=== PATIENT | female | born 1965 | race African-American/Black ===

== ENCOUNTER 2016-12-29 16:03 | Emergency (ER) | payer OTHER ==
--- NOTE | 2016-12-29 17:05 | ER Document Report ---
ED General - General Chief Complaint: Headache Stated Complaint: VAGINAL BLEEDING,DIZZY,HEADACHE Time Seen by Provider: 12/29/16 16:50 Mode of Arrival: Ambulatory Information source: Patient Notes: 51-year-old female who has had a history of intermittent rectal bleeding has not had one in the past month who also has a history of iron deficiency but has not been receiving her iron infusions appropriately presents with complaints of lightheadedness dizziness. Patient initially states she does not want transfusion if she needs it but does not give a reason for this Patient completely denies any active bleeding at this time TRAVEL OUTSIDE OF THE [place] IN LAST 30 DAYS: No - HPI Onset: Other Onset/Duration: Intermittent Quality of pain: Other Severity: Mild Associated symptoms: Weakness Exacerbated by: Denies Relieved by: Denies Similar symptoms previously: Yes Recently seen / treated by doctor: Yes - Related Data Allergies/Adverse Reactions: Penicillins Allergy (Verified 12/29/16 16:14) ITCHING, SWELLING iodine [Iodine] Adverse Reaction (Severe, Verified 12/29/16 16:14) rash Past Medical History - Social History Smoking Status: Never Smoker Cigarette use (# per day): No Chew tobacco use (# tins/day): No Smoking Education Provided: No Family History: Hypertension - Past Medical History Cardiac Medical History: Denies: Hx Coronary Artery Disease, Hx Heart Attack, Hx Hypertension Pulmonary Medical History: Denies: Hx Asthma, Hx Bronchitis, Hx COPD, Hx Pneumonia Neurological Medical History: Denies: Hx Cerebrovascular Accident, Hx Seizures Renal/ Medical History: Denies: Hx Peritoneal Dialysis Musculoskeltal Medical History: Denies Hx Arthritis, Reports Hx Musculoskeletal Trauma Skin Medical History: Reports Hx Cellulitis Past Surgical History: Reports: Hx Orthopedic Surgery - left ankle, Hx Tubal Ligation. Denies: Hx Hysterectomy - Immunizations Hx Diphtheria, Pertussis, Tetanus Vaccination: - unsure Review of Systems - Review of Systems Notes: REVIEW OF SYSTEMS: CONSTITUTIONAL : Denies fever, chills, or sweats. Denies recent illness. EENT: Denies eye, ear, throat, or mouth pain or symptoms. Denies nasal or sinus congestion or discharge. Denies throat, tongue, or mouth swelling or difficulty swallowing. CARDIOVASCULAR: Denies chest pain. Denies palpitations or racing or irregular heart beat. Denies ankle edema. RESPIRATORY: Denies cough, cold, or chest congestion. Denies shortness of breath, difficulty breathing, or wheezing. GASTROINTESTINAL: Denies abdominal pain or distention. Denies nausea, vomiting , or diarrhea. Denies blood in vomitus, stools, or per rectum. Denies black, tarry stools. Denies constipation. GENITOURINARY: Denies difficulty urinating, painful urination, burning, frequency, blood in urine, or discharge. FEMALE GENITOURINARY: Denies vaginal bleeding, heavy or abnormal periods, irregular periods. Denies vaginal discharge or odor. MUSCULOSKELETAL: Denies back or neck pain or stiffness. Denies joint pain or swelling. SKIN: Denies rash, lesions or sores. HEMATOLOGIC : Denies easy bruising or bleeding. LYMPHATIC: Denies swollen, enlarged glands. NEUROLOGICAL: Admits to dizziness lightheadedness headache PSYCHIATRIC: Denies anxiety or stress. Denies depression, suicidal ideation, or homicidal ideation. ALL OTHER SYSTEMS REVIEWED AND NEGATIVE. PHYSICAL EXAMINATION: GENERAL: Well-appearing, well-nourished and in no acute distress. HEAD: Atraumatic, normocephalic. EYES: Pupils equal round and reactive to light, extraocular movements intact, conjunctiva are normal. ENT: Nares patent, oropharynx clear without exudates. Moist mucous membranes. Pale lips NECK: Normal range of motion, supple without lymphadenopathy LUNGS: Breath sounds clear to auscultation bilaterally and equal. No wheezes rales or rhonchi. HEART: Regular rate and rhythm without murmurs ABDOMEN: Soft, nontender, nondistended abdomen. No guarding, no rebound. No masses appreciated. Female : deferred Musculoskeletal: Normal range of motion, no pitting or edema. No cyanosis. NEUROLOGICAL: Cranial nerves grossly intact. Normal speech, normal gait. Normal sensory, motor exams PSYCH: Normal mood, normal affect. SKIN: Warm, Dry, normal turgor, no rashes or lesions noted. Dictation was performed using [employer] voice recognition software Physical Exam - Vital signs Vitals: Temp Pulse BP Pulse Ox 98.7 F 103 H 108/64 99 12/29/16 16:12 12/29/16 16:12 12/29/16 16:12 12/29/16 16:12 Course - Re-evaluation Re-evalutation: 12/29/16 18:44 Patient is noted to have a hemoglobin 7.1, she does consent to blood transfusion 12/29/16 22:54 Patient was given Benadryl Compazine notes her headache is completely resolved, with written consent I did transfuse the patient's with multiple family members present. I believe she only needs 1 unit at this time but that she must follow- up with primary care physician regarding her anemia After performing a Medical Screening Examination, I estimate there is LOW risk for ACUTE CORONARY SYNDROME, RESPIRATORY FAILURE, SEPSIS OR MENINGITIS, thus I consider the discharge disposition reasonable. I have reevaluated this patient multiple times and no significant life threatening changes are noted. The patient and I have discussed the diagnosis and risks, and we agree with discharging home with close follow-up. We also discussed returning to the Emergency Department immediately if new or worsening symptoms occur. We have discussed the symptoms which are most concerning (e.g., changing or worsening pain, trouble swallowing or breathing, neck stiffness, fever) that necessitate immediate return. - Vital Signs Vital signs: Temp Pulse Resp BP Pulse Ox 98.7 F 97 18 120/58 L 97 12/29/16 22:11 12/29/16 22:11 12/29/16 22:11 12/29/16 22:11 12/29/16 22:11 - Laboratory Result Diagrams: 12/29/16 18:00 12/29/16 18:00 Laboratory results interpreted by me: 12/29/16 12/29/16 12/29/16 18:00 18:00 18:00 RBC 2.30 L Hgb 7.1 L Hct 20.4 L RDW 15.0 H Est GFR ( Amer) 58 L Est GFR (Non-Af Amer) 48 L Glucose 117 H Crossmatch See Detail Critical Care Note - Critical Care Note Total time excluding time spent on procedures (mins): 34 Comments: 34 minutes of critical care time spent in direct contact evaluating and reevaluating the patient, treating symptoms, reviewing labs and studies and speaking with family and consultants excluding any procedures Discharge - Discharge Clinical Impression: Weakness, Anemia requiring transfusions Condition: Stable Disposition: HOME, SELF-CARE Instructions: Anemia, Iron Deficiency ([facility]) Additional Instructions: Follow up with your physician tomorrow for further care or return to the ED IMMEDIATELY if symptoms worsen or new concerns occur. If you cannot afford to follow up with your primary care physician a list of low cost clinics have been provided at the end of your discharge papers as well. Forms: Return to Work
--- NOTE | 2016-12-29 17:07 | ER Document Report ---
ED Medical Screen (RME) - General Chief Complaint: Headache Stated Complaint: VAGINAL BLEEDING,DIZZY,HEADACHE Time Seen by Provider: 12/29/16 16:50 Notes: Patient is a 51-year-old female who was sent over to the emergency department by her [employer] regarding concerns for GI bleed. Patient states that approximately 2 months ago she underwent banding with Dr. De La Vega for hemorrhoids. She states that they did not work and that intermittently over the past 2 weeks when she strains to have a bowel movement she has lower GI bleeding which resolved after about 15-20 minutes. She states that she has not been bleeding the past 3 days but today she had a terrible headache and felt weak, dizzy and drained. She also states that she was recently diagnosed as a type II diabetic and initiated on a 1300-calorie diet. TRAVEL OUTSIDE OF THE [place] IN LAST 30 DAYS: No - Related Data Allergies/Adverse Reactions: Penicillins Allergy (Verified 12/29/16 16:14) ITCHING, SWELLING iodine [Iodine] Adverse Reaction (Severe, Verified 12/29/16 16:14) rash Past Medical History - Past Medical History Cardiac Medical History: Denies: Hx Coronary Artery Disease, Hx Heart Attack, Hx Hypertension Pulmonary Medical History: Denies: Hx Asthma, Hx Bronchitis, Hx COPD, Hx Pneumonia Neurological Medical History: Denies: Hx Cerebrovascular Accident, Hx Seizures Renal/ Medical History: Denies: Hx Peritoneal Dialysis Musculoskeltal Medical History: Denies Hx Arthritis, Reports Hx Musculoskeletal Trauma Skin Medical History: Reports Hx Cellulitis Past Surgical History: Reports: Hx Orthopedic Surgery - left ankle, Hx Tubal Ligation. Denies: Hx Hysterectomy - Immunizations Hx Diphtheria, Pertussis, Tetanus Vaccination: - unsure Physical Exam - Vital signs Vitals: Temp Pulse BP Pulse Ox 98.7 F 103 H 108/64 99 12/29/16 16:12 12/29/16 16:12 12/29/16 16:12 12/29/16 16:12 - General General appearance: Appears well, Alert In distress: None - Respiratory Respiratory status: No respiratory distress Chest status: Nontender Breath sounds: Normal Chest palpation: Normal - Cardiovascular Rhythm: Regular Heart sounds: Normal auscultation, S1 appreciated, S2 appreciated Pulses: Normal: Radial Course - Vital Signs Vital signs: Temp Pulse Resp BP Pulse Ox 98.7 F 103 H 108/64 99 12/29/16 16:12 12/29/16 16:12 12/29/16 16:12 12/29/16 16:12
[2016-12-29] MEDS ORDERED: DIPHENHYDRAMINE HCL 50 MG/ML VIAL IV ONE (17:23)
[2016-12-29] MEDS ORDERED: PROCHLORPERAZINE EDISYLATE INJ 10 MG/2 ML VIAL IV ONE (17:23)
--- NOTE | 2016-12-29 17:48 | RADIOLOGY REPORT (SQ) ---
EXAM DESCRIPTION: CT HEAD WITHOUT COMPLETED DATE/TIME: 12/29/2016 5:37 pm REASON FOR STUDY: headache COMPARISON: September 2008 TECHNIQUE: Axial images acquired through the brain without intravenous contrast. Images reviewed wi th bone, brain and subdural windows. Images stored on PACS. All CT scanners at this facility use dose modulation, iterative reconstruction, and/or weight based d osing when appropriate to reduce radiation dose to as low as reasonably achievable (ALARA). [facility]: Dose Right [facility]: CareDose [facility]: Dose Right [facility]: Teradose 4D [facility]: [employer] RADIATION DOSE: mGy. LIMITATIONS: None. FINDINGS: VENTRICLES: Normal size and contour. CEREBRUM: No masses. No hemorrhage. No midline shift. No evidence for acute infarction. Normal gra y/white matter differentiation. No areas of low density in the white matter. CEREBELLUM: No masses. No hemorrhage. No alteration of density. No evidence for acute infarction. EXTRAAXIAL SPACES: No fluid collections. No masses. ORBITS AND GLOBE: No intra- or extraconal masses. Normal contour of globe without masses. CALVARIUM: No fracture. PARANASAL SINUSES: No fluid or mucosal thickening. SOFT TISSUES: No mass or hematoma. OTHER: No other significant finding. IMPRESSION: NORMAL BRAIN CT WITHOUT CONTRAST. EVIDENCE OF ACUTE STROKE: NO. COMMENT: Quality ID # 436: Final reports with documentation of one or more dose reduction techniques (e.g., Automated exposure control, adjustment of the mA and/or kV according to patient size, use of iterative reconstruction technique) TECHNICAL DOCUMENTATION: JOB ID: [id number] [employer]- All Rights Reserved
[2016-12-29 18:27] LABS: ABSOLUTE LYMPHOCYTES (AUTO) 2.1 10^3/uL (0.5-4.7); ABSOLUTE MONOCYTES (AUTO) 0.5 10^3/uL (0.1-1.4); ABSOLUTE NEUT (AUTO) 5.4 10^3/uL (1.7-8.2); BASOPHILS % (AUTO) 0.5 % (0-2); EOSINOPHILS % (AUTO) 0.6 % (0-6); HEMATOCRIT 20.4 % (36.0-47.0); HGB HCT DIFFERENCE 0.9; LYMPHOCYTES % (AUTO) 25.4 % (13-45); MEAN CORPUSCULAR HEMOGLOBIN 30.8 pg (27.0-33.4); MEAN CORPUSCULAR HGB CONC 34.7 g/dL (32.0-36.0); MEAN CORPUSCULAR VOLUME 89 fl (80-97); MONOCYTES % (AUTO) 6.6 % (3-13); SEGMENTED NEUTROPHILS % (AUTO) 66.9 % (42-78); WHITE BLOOD COUNT 8.1 10^3/uL (4.0-10.5)
[2016-12-29 18:30] LABS: HEMOGLOBIN 7.1 g/dL (12.0-15.5)
[2016-12-29 18:40] LABS: ALANINE AMINOTRANSFERASE 31 U/L (9-52); ALBUMIN 4.8 g/dL (3.5-5.0); ALKALINE PHOSPHATASE 56 U/L (38-126); ANION GAP 16 (5-19); ASPARTATE AMINO TRANSFERASE 28 U/L (14-36); BILIRUBIN,DIRECT 0.3 mg/dL (0.0-0.4); BILIRUBIN,TOTAL 0.5 mg/dL (0.2-1.3); BLOOD UREA NITROGEN 20 mg/dL (7-20); CALCIUM 10.2 mg/dL (8.4-10.2); CARBON DIOXIDE 22 mmol/L (22-30); CHLORIDE 102 mmol/L (98-107); CREATININE RESULT 1.18 mg/dL (0.52-1.25); GLUCOSE 117 mg/dL (75-110); POTASSIUM 3.8 mmol/L (3.6-5.0); SODIUM 140.1 mmol/L (137-145)
[2016-12-29] MEDS ORDERED: NORMAL SALINE 250 ML IV PRN ×2 (18:40)
[2016-12-29 22:12] VITALS: BP 120/58
== END 2016-12-29 22:16 | disposition home or self-care (01) ==
LOC: ER 16:03
DX: D64.9 Anemia, unspecified (principal); R53.1 Weakness; R51 Headache; R42 Dizziness and giddiness; Z88.0 Allergy status to penicillin
CPT/HCPCS: 99285; 96374; 96375; 86900; 86901; 36415; 36430; 86850; 85025; 80053; 86920; 70450; P9016; J1200; J0780

== ENCOUNTER 2017-05-30 08:54 | Emergency (ER) | payer OTHER ==
[2017-05-30] MEDS ORDERED: HYDROCODONE/ACETAMINOPHEN 5-325 MG TABLET PO ONE (09:35)
[2017-05-30] MEDS ORDERED: KETOROLAC TROMETHAMINE INJ/PF 30 MG/1 ML SDV IM ONE (09:35)
--- NOTE | 2017-05-30 09:39 | ER Document Report ---
ED Extremity Problem, Lower - General Chief Complaint: Ankle Pain Stated Complaint: ANKLE PAIN/SWOLLEN Time Seen by Provider: 05/30/17 09:06 Mode of Arrival: Ambulatory Information source: Patient TRAVEL OUTSIDE OF THE [place] IN LAST 30 DAYS: No - HPI Patient complains to provider of: Pain Location: Ankle, Foot Notes: Patient is here with complaints of right lateral foot and ankle pain. She states that she has had pain for a little over a week now but over the last 2 days the pain is gotten much more severe. She denies any specific injuries or falls. She does report working on her feet for long hours every day. She denies any numbness, tingling, weakness. She states that she has noticed some swelling, but feels like the swelling is better today. She denies any leg pain or swelling. She denies any recent long trips or surgeries, history of cancer, hormones, history of DVT or PE. No chest pain or shortness of breath. She denies any fevers. She denies any nausea, vomiting, diarrhea. She denies any rash. She denies a history of gout. She denies any other complaints at this time. Pain is much worse with weightbearing and touch, better when off of her foot. - Related Data Allergies/Adverse Reactions: Penicillins Allergy (Verified 12/29/16 16:14) ITCHING, SWELLING iodine [Iodine] Adverse Reaction (Severe, Verified 12/29/16 16:14) rash Past Medical History - Social History Smoking Status: Unknown if Ever Smoked Family History: Hypertension Patient has suicidal ideation: No Patient has homicidal ideation: No - Past Medical History Cardiac Medical History: Denies: Hx Coronary Artery Disease, Hx Heart Attack, Hx Hypertension Pulmonary Medical History: Denies: Hx Asthma, Hx Bronchitis, Hx COPD, Hx Pneumonia Neurological Medical History: Denies: Hx Cerebrovascular Accident, Hx Seizures Renal/ Medical History: Denies: Hx Peritoneal Dialysis Musculoskeltal Medical History: Denies Hx Arthritis, Reports Hx Musculoskeletal Trauma Skin Medical History: Reports Hx Cellulitis Past Surgical History: Reports: Hx Orthopedic Surgery - left ankle, Hx Tubal Ligation. Denies: Hx Hysterectomy - Immunizations Hx Diphtheria, Pertussis, Tetanus Vaccination: - unsure Review of Systems - Review of Systems -: Yes All other systems reviewed and negative Physical Exam - Vital signs Vitals: Temp Pulse Resp BP Pulse Ox 98.2 F 79 18 111/72 100 05/30/17 08:59 05/30/17 08:59 05/30/17 08:59 05/30/17 08:59 05/30/17 08:59 - Notes Notes: GENERAL: alert, cooperative, nontoxic, no distress. HEAD: normocephalic, atraumatic EYES: conjunctiva pink without discharge, no external redness or swelling. EARS: no external swelling, no external redness NOSE: atraumatic, no external swelling MOUTH/THROAT: mucous membranes moist and pink NECK: soft, supple, full range of motion, no meningismus. CHEST: no distress, lungs clear and equal throughout. No wheezing, rales, rhonchi. CARDIAC: regular rate and rhythm, no murmur, normal capillary refill, normal pulses. BACK: full range of motion, no CVA tenderness. EXTREMITIES: full range of motion of all extremities. No redness, no swelling. Tenderness along the lateral aspect of the right foot and lateral malleolus. There is no obvious swelling identified. Achilles is normal and intact. Normal Oropeza's test. No swelling or tenderness to the right calf. Normal pulse and sensation. Full range of motion. Knee exam is unremarkable. NEURO: alert and oriented 3, no focal deficits, full range of motion of all extremities. PYSCH: appropriate mood, affect. Patient is cooperative. SKIN: pink, warm, dry, no rash. Course - Re-evaluation Re-evalutation: 05/30/17 10:22 Patient is nontoxic appearing with stable vitals. She is here with right lateral foot and ankle pain for the last few days. No injury. No fever. There is no redness to the foot. There is no obvious swelling and no signs of infection. There is no calf swelling. She is no DVT risk factors. X-ray show no acute findings of the right foot or ankle. The patient does work on her feet for long hours daily. Is possible that this could be some overuse. Septic joint is considered, but extremely unlikely as there is no fever, no redness in the joint is not hot to the touch. It is possible that she could have gout. At this point the patient will be discharged home with a prescription for Voltaren and Outlook. She has an [place] wrap applied to the foot here. She will be given crutches to help with ambulation. Rest, ice, elevate. Follow-up with orthopedics if not better in the next week, sooner for worsening pain, fever, redness, numbness, tingling, weakness, any further concerns. The patient's emergency department workup and current diagnosis were explained to the patient and or family. Follow-up instructions were provided. Medications if prescribed were discussed. Instructions for when to return to the emergency department including specific worrisome symptoms were discussed with the patient and/or family. - Vital Signs Vital signs: Temp Pulse Resp BP Pulse Ox 98.2 F 79 18 111/72 100 05/30/17 08:59 05/30/17 08:59 05/30/17 08:59 05/30/17 08:59 05/30/17 08:59 - Diagnostic Test Radiology reviewed: Image reviewed, Reports reviewed - NEGATIVE RIGHT FOOT AND ANKLE Procedures - Immobilization Right foot and ankle Pre-Proc Neuro Vasc Exam: Normal Immobilizer type: [place] wrap Performed by: PCT Post-Proc Neuro Vasc Exam: Normal Alignment checked and good: Yes Discharge - Discharge Clinical Impression: Pain in right ankle and joints of right foot Condition: Stable Disposition: HOME, SELF-CARE Instructions: Arthralgia ([facility]) Additional Instructions: Take medications as prescribed. Rest, ice, elevate your foot. Use [place] wrap and crutches as needed for pain. Follow-up if not better in 1 week, sooner for worsening pain, fever, redness, numbness, tingling, weakness, any further concerns. The medication you were prescribed today may cause drowsiness. Do not drive or operate heavy machinery while taking this medication. Prescriptions: Diclofenac Sodium [Voltaren 50 Mg Agusto.] 50 mg PO BID #20 tablet. Hydrocodone/Acetaminophen [Outlook 5-325 mg Tablet] 2 tab PO Q6H PRN #15 tab PRN Reason: Forms: Elevated Blood Pressure, Smoking Cessation Education Referrals: MARIO MATHEW MD [Primary Care Provider] - Follow up as needed ABHISHEK SEGURA MD [ACTIVE STAFF] - Follow up as needed
--- NOTE | 2017-05-30 10:16 | RADIOLOGY REPORT (SQ) ---
EXAM DESCRIPTION: FOOT RIGHT COMPLETE COMPLETED DATE/TIME: 05/30/2017 9:52 am REASON FOR STUDY: pain COMPARISON: None. NUMBER OF VIEWS: Three views. TECHNIQUE: AP, lateral and oblique without weight bearing radiographic images acquired of the right foot. LIMITATIONS: None. FINDINGS: MINERALIZATION: Normal. BONES: No acute fracture or dislocation. No worrisome bone lesions. Degenerative changes 1st and TP j oint. JOINTS: No erosions. No gretchen-articular osteopenia. No chondrocalcinosis. SOFT TISSUES: No swelling. No calcifications. OTHER: No other significant finding. IMPRESSION: Degenerative changes 1st MTP joint. No acute fracture. TECHNICAL DOCUMENTATION: JOB ID: [id number] [employer]- All Rights Reserved Reading location - IP/workstation name: [email or web address]
--- NOTE | 2017-05-30 10:17 | RADIOLOGY REPORT (SQ) ---
EXAM DESCRIPTION: ANKLE RIGHT COMPLETE COMPLETED DATE/TIME: 05/30/2017 9:52 am REASON FOR STUDY: pain COMPARISON: 05/15/2009 NUMBER OF VIEWS: Three views. TECHNIQUE: AP, lateral, and oblique radiographic images acquired of the right ankle. LIMITATIONS: None. FINDINGS: MINERALIZATION: Normal. BONES: No acute fracture or dislocation. No worrisome bone lesions. JOINTS: No effusions. SOFT TISSUES: No soft tissue swelling. No foreign body. OTHER: No other significant finding. IMPRESSION: NEGATIVE STUDY OF THE RIGHT ANKLE. NO RADIOGRAPHIC EVIDENCE OF ACUTE INJURY. TECHNICAL DOCUMENTATION: JOB ID: [id number] [employer]- All Rights Reserved Reading location - IP/workstation name: [email or web address]
[2017-05-30 10:53] VITALS: BP 114/56
== END 2017-05-30 10:50 | disposition home or self-care (01) ==
LOC: ER 08:54
DX: M25.571 Pain in right ankle and joints of right foot (principal); Z88.0 Allergy status to penicillin
CPT/HCPCS: 99283; 96372; 73610; 73630; J1885

== ENCOUNTER → 2017-11-15 | Outpatient (CLI) | payer OTHER ==
[2017-11-15 10:01] LABS: HEMATOCRIT 33.1 % (36.0-47.0); HEMOGLOBIN 11.6 g/dL (12.0-15.5); MEAN CORPUSCULAR HEMOGLOBIN 34.6 pg (27.0-33.4); MEAN CORPUSCULAR HGB CONC 34.9 g/dL (32.0-36.0); MEAN CORPUSCULAR VOLUME 99 fl (80-97); PLATELET COUNT 263 10^3/uL (150-450); RED BLOOD COUNT 3.34 10^6/uL (3.72-5.28); RED CELL DISTRIBUTION WIDTH 14.8 % (11.5-14.0); WHITE BLOOD COUNT 3.5 10^3/uL (4.0-10.5)
--- NOTE | 2017-11-15 23:07 | EKG REPORT ---
SEVERITY:- ABNORMAL ECG - SINUS RHYTHM FIRST DEGREE AV BLOCK : Confirmed by: Augie Atkinson 15-Nov-2017 23:06:34
== END ==
LOC: OD 09:15 → EDSTATUS 12-02 15:15
PROVIDERS: ATTEND Surgery
DX: Z01.810 Encounter for preprocedural cardiovascular examination (principal); Z01.812 Encounter for preprocedural laboratory examination; Z01.818 Encounter for other preprocedural examination; K64.8 Other hemorrhoids; E11.9 Type 2 diabetes mellitus without complications; I10 Essential (primary) hypertension; D64.9 Anemia, unspecified
CPT/HCPCS: 36415; 85027; 93005; 93010

== ENCOUNTER → 2017-12-20 | Outpatient (CLI) | payer OTHER ==
[~2017-12-20] MED LIST: METRONIDAZOLE 500 MG/NS RTU 500 MG/100 ML RTUPB IV PRN
[2017-12-20 16:53] LABS: ANION GAP 12 (5-19); BLOOD UREA NITROGEN 8 mg/dL (7-20); CALCIUM 9.5 mg/dL (8.4-10.2); CARBON DIOXIDE 25 mmol/L (22-30); CHLORIDE 105 mmol/L (98-107); GLUCOSE 110 mg/dL (75-110); POTASSIUM 4.1 mmol/L (3.6-5.0); SODIUM 142.3 mmol/L (137-145)
[2017-12-21 13:12] LABS: HEMATOCRIT 29.9 % (36.0-47.0); RED BLOOD COUNT 3.31 10^6/uL (3.72-5.28); WHITE BLOOD COUNT 4.8 10^3/uL (4.0-10.5)
[2017-12-21 13:13] LABS: MEAN CORPUSCULAR HEMOGLOBIN 30.3 pg (27.0-33.4); MEAN CORPUSCULAR HGB CONC 33.5 g/dL (32.0-36.0); MEAN CORPUSCULAR VOLUME 90 fl (80-97); RED CELL DISTRIBUTION WIDTH 15.7 % (11.5-14.0)
[2017-12-21 13:14] LABS: PLATELET COUNT 255 10^3/uL (150-450)
--- NOTE | 2017-12-22 13:08 | EKG REPORT ---
SEVERITY:- ABNORMAL ECG - SINUS RHYTHM FIRST DEGREE AV BLOCK : Confirmed by: Blanco Arriaza MD 22-Dec-2017 13:07:41
== END ==
LOC: OD 15:45 → EDSTATUS 12-23 14:30
PROVIDERS: ATTEND Surgery
DX: Z01.810 Encounter for preprocedural cardiovascular examination (principal); Z01.812 Encounter for preprocedural laboratory examination; Z01.818 Encounter for other preprocedural examination; K64.8 Other hemorrhoids; E11.9 Type 2 diabetes mellitus without complications; I10 Essential (primary) hypertension; D64.9 Anemia, unspecified
CPT/HCPCS: 36415; 80048; 85027; 93005; 93010

== ENCOUNTER 2019-01-30 14:57 | Emergency (ER) | payer OTHER ==
[2019-01-30 15:02] VITALS: BP 152/72
[2019-01-30] MEDS ORDERED: NORMAL SALINE 1000 ML 1,000 ML IV ONE (15:18)
[2019-01-30] MEDS ORDERED: BUTALB/ACETAMINOPHEN/CAFFEINE 1 TAB EACH PO ONE (15:19)
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
[2019-01-30] MEDS ORDERED: CYCLOBENZAPRINE HCL 10 MG TABLET PO ONE (18:27)
[2019-01-30] MEDS ORDERED: HYDROCODONE/ACETAMINOPHEN 5-325 MG (6 TAB/ER DISP) PO PRN (18:27)
== END 2019-01-30 18:58 | disposition home or self-care (01) ==
LOC: ER 14:57
DX: M54.6 Pain in thoracic spine (principal); M25.512 Pain in left shoulder; R51 Headache; M25.521 Pain in right elbow; V73.5XXA Driver of bus injured in collision with car, pick-up truck or van in traffic accident, initial encounter; M50.322 Other cervical disc degeneration at C5-C6 level; I10 Essential (primary) hypertension; Z88.8 Allergy status to other drugs, medicaments and biological substances; Z88.0 Allergy status to penicillin
CPT/HCPCS: 99284; 73030; 72070; 72125; J3490

== ENCOUNTER 2019-02-06 20:25 | Emergency (ER) | payer OTHER ==
[2019-02-06 20:51] VITALS: BP 136/76
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
== END 2019-02-06 21:39 | disposition home or self-care (01) ==
LOC: ER 20:25
DX: M54.6 Pain in thoracic spine (principal); M54.2 Cervicalgia; M25.512 Pain in left shoulder; V79.9 Bus occupant (driver) (passenger) injured in unspecified traffic accident; I10 Essential (primary) hypertension
CPT/HCPCS: 99283